=== PATIENT | male | born 1980 | race Caucasian/White ===

== ENCOUNTER 2019-05-22 21:40 | Emergency (ER) | payer BC ==
--- OUTSIDE RECORDS SUMMARY | 2019-05-22 21:46 | XMS REPORT | Continuity of Care Document ---
:1980 External Reference #:[id number] Author Name Gianna Sparks MD Address [address] [place] [id number] Care Team Providers Name Role Phone [facility] - Allergy & Care Team Information Power System Electrical Engineer [phone] Immunology [facility] Care Team Information Power System Electrical Engineer [phone] Laila Melchor MD Care Team Information Power System Electrical Engineer [phone] Sivlino Bennett PT, DPT - Physical Care Team Information Power System Electrical Engineer Therapist Problems Active Problems Provider Date Atopic dermatitis Gianna Sparks MD Onset: 07/08/2018 Social History Type Date Description Comments Sex Unknown ETOH Use Occasionally consumes alcohol Tobacco Use Start: Unknown End: Patient is a former 12/26 quit with Unknown smoker when Smoking Status Reviewed: 05/06/19 Patient is a former 12/26 quit with smoker when Exercise Exercises sporadically Type/Frequency Allergies, Adverse Reactions, Alerts Active Allergies Reaction Severity Comments Date NKDA 06/07/2017 Cats 08/23/2008 Medications Active Medications SIG Qnty Indications Ordering Provider Date Xyzal Allergy 24HR 1 by mouth 90tabs J30.9 Gianna Sparks, 12/01/2017 5mg daily MD Tablets L20.9 Diphenhydramine HCL 1po qhs 120caps J30.9 Gianna Sparks, 12/01/2017 25mg MD Capsules Hydrocortisone Valerate apply to affected 45gm L20.9 Gianna Sparks, 0.2% area 3 times a MD Ointment day until resolved then daily for 1-2 weeks to taper off Montelukast Sodium take 1 tablet by 90tabs L20.9 Gianna Sparks, 2017 10mg mouth at bedtime Tablets Mometasone Furoate apply twice daily 45gm L20.9 Gianna Sparks, 0.1% to atopic rash Ointment History Medications Prednisone 2 by mouth for 10tabs M54.5 Gianna Sparks, 05/06/2019 - 20mg Tablets 3 days, then 1 MD 05/12/2019 by mouth daily for 4 days Cyclobenzaprine HCL 1 by mouth 90tabs M54.5 Gianna Sparks, 05/06/2019 - 10mg three times a MD 05/12/2019 Tablets day as needed, caution sedation Immunizations CPT Code Status Date Vaccine Lot # [id number] Given 02/01/2019 Tdap (Adacel) Ages 7 And Above Only [id number] Given 05/05/2013 Afluria Or Fluvirin Flu Vac Intramuscular 21980 Given 02/07/2013 Tdap (Adacel) Ages 7 And Above Only 55232 Given 04/16/2012 Afluria Or Fluvirin Flu Vac Intramuscular 50271 Given 06/21/2010 Afluria Or Fluvirin Flu Vac Intramuscular 61143 Given 08/23/2008 Tdap (Adacel) Ages 7 And Above Only 57140 Refused 05/06/2019 Fluzone Highdose Age 65 And Over Preservative & Antibiotic Free [id number] Refused 07/08/2018 Flu Vaccine NOS 53872 Refused 10/01/2016 Influenza Virus Vaccine,Quadrivalent,Split,Preserv Free, 0.5mL,Im Vital Signs Date Vital Result Comment 05/12/2019 10:43am Weight 228.00 lb Heart Rate 80 /min BP Systolic 134 mmHg BP Diastolic 80 mmHg Respiratory Rate 18 /min Height 73.5 inches 6'1.50" BMI (Body Mass Index) 29.7 kg/m2 05/06/2019 11:42am Weight 228.00 lb Heart Rate 73 /min BP Systolic 150 mmHg BP Diastolic 90 mmHg Respiratory Rate 18 /min Height 73.5 inches 6'1.50" O2 % BldC Oximetry 99 % BMI (Body Mass Index) 29.7 kg/m2 Results Description No Information Available Procedures Description No Information Available Medical Devices Description No Information Available Encounters Type Date Location Provider Dx Diagnosis Office Visit 05/06/2019 11:15a [facility] Gianna Sparks MD M54.5 Low back pain R03.0 Elevated blood-pressure reading, w/o diagnosis of htn M54.16 Radiculopathy, lumbar region Z68.29 Body mass index (BMI) 29.0-29.9, adult Office Visit 02/08/2019 2:30p [facility] Gianna Sparks MD L20.9 Atopic dermatitis, unspecified S00.91xD Abrasion of unspecified part of head, subsequent encounter S09.90xD Unspecified injury of head, subsequent encounter E78.2 Mixed hyperlipidemia Z13.31 Encounter for screening for depression Z68.29 Body mass index (BMI) 29.0-29.9, adult Office Visit 02/01/2019 3:15p [facility] Gianna Sparks MD S00.91xA Abrasion of unspecified part of head, initial encounter S09.90xA Unspecified injury of head, initial encounter Z23 Encounter for immunization L20.9 Atopic dermatitis, unspecified Z68.28 Body mass index (BMI) 28.0-28.9, adult Assessments Date Code Description Provider 05/12/2019 M54.5 Low back pain Gianna Sparks MD 05/12/2019 Z68.29 Body mass index (BMI) 29.0-29.9, adult Gianna Sparks MD 05/06/2019 M54.5 Low back pain Gianna Sparks MD 05/06/2019 R03.0 Elevated blood-pressure reading, without Gianna Sparks MD diagnosis of hypertension 05/06/2019 M54.16 Radiculopathy, lumbar region Ginana Sparks MD 05/06/2019 Z68.29 Body mass index (BMI) 29.0-29.9, adult Gianna Sparks MD 02/08/2019 L20.9 Atopic dermatitis, unspecified Gianna Sparks MD 02/08/2019 S00.91xD Abrasion of unspecified part of head, Gianna Sparks MD subsequent encounter 02/08/2019 S09.90xD Unspecified injury of head, subsequent Gianna Sparks MD encounter 02/08/2019 E78.2 Mixed hyperlipidemia Gianna Sparks MD 02/08/2019 Z13.31 Encounter for screening for depression Gianna Sparks MD 02/08/2019 Z68.29 Body mass index (BMI) 29.0-29.9, adult Gianna Sparks MD 02/01/2019 S00.91xA Abrasion of unspecified part of head, iGanna Sparks MD initial encounter 02/01/2019 S09.90xA Unspecified injury of head, initial Gianna Sparks MD encounter 02/01/2019 Z23 Encounter for immunization Gianna Sparks MD 02/01/2019 L20.9 Atopic dermatitis, unspecified Gianna Sparks MD 02/01/2019 Z68.28 Body mass index (BMI) 28.0-28.9, adult Gianna Sparks MD Plan of Treatment Future Appointment(s):02/04/2020 2:30 pm - Schedule, Laboratory at [facility]2019 3:30 pm - Gianna Sparks MD at [facility]05/12/2019 - Gianna Sparks, MDM54.5 Low back painComments:back pain resolvedoff all medsfeels he can return to work full dutyworking on core strength from PT,working on lifting strategies. do this the rest of your life use kathleen pressups if another flare up happens return to work full duty, seek care if sxs returnFollow up:as wuqmlbyJ13.29 Body mass index (BMI) 29.0-29.9, adultComments:Recommend regular exercise and reduced calorie diet for weight loss Cautioned risks for developing sleep apnea, arthritis, hypertension, premature cardiovascular disease, diabetes. Functional Status Description No Information Available Mental Status Description No Information Available Referrals Refer to Dr Reason for Referral Status Appt Date Laila Melchor MD 38 yo with severe arm/hand Patient Declined dermatitis, atopic. [address] [place] [address] [phone] [facility] deep abrasions x 2 to face , concern fo Closed 2018 rdepth of injury [address] [place] [address] [phone]
--- OUTSIDE RECORDS SUMMARY | 2019-05-22 21:46 | XMS REPORT | Continuity of Care Document ---
:1980 External Reference #:[id number] Author Name Gianna Sparks MD Address [address] [place] [id number] Care Team Providers Name Role Phone [facility] - Allergy & Care Team Information Manager Enrollment Immunology [facility] Care Team Information Manager Enrollment [phone] Laila Melchor MD Care Team Information Manager Enrollment [phone] Silvino Bennett PT, DPT - Physical Care Team Information Manager Enrollment [phone] Therapist Problems Active Problems Provider Date Atopic [...] CPT Code Status Date Vaccine Lot # [id number] Given 02/01/2019 Tdap (Adacel) Ages 7 And Above Only [id number] 56644 Given 05/05/2013 Afluria Or Fluvirin Flu Vac Intramuscular 96911 Given 02/07/2013 Tdap (Adacel) Ages 7 And Above Only 96233 Given 04/16/2012 Afluria Or Fluvirin Flu Vac Intramuscular 01551 Given 06/21/2010 Afluria Or Fluvirin Flu Vac Intramuscular 81266 Given 08/23/2008 Tdap (Adacel) Ages 7 And Above Only 93817 Refused 05/06/2019 Fluzone Highdose Age 65 And Over Preservative & Antibiotic Free Q2039 Refused 07/08/2018 Flu Vaccine NOS 12136 Refused 10/01/2016 Influenza Virus Vaccine,Quadrivalent,Split,Preserv Free, 0.5mL,Im [...] Provider Dx Diagnosis Office Visit 05/06/2019 11:15a [facility] Gianna Sparks MD M54.5 Low back pain R03.0 Elevated blood-pressure reading, w/o diagnosis of htn M54.16 Radiculopathy, lumbar region Z68.29 Body mass index (BMI) 29.0-29.9, adult Office Visit 02/08/2019 2:30p [facility] Gianna Sparks MD L20.9 Atopic dermatitis, unspecified S00.91xD Abrasion of unspecified part of head, subsequent encounter S09.90xD Unspecified injury of head, subsequent encounter E78.2 Mixed hyperlipidemia Z13.31 Encounter for screening for depression Z68.29 Body mass index (BMI) 29.0-29.9, adult Office Visit 02/01/2019 3:15p [facility] Gianna Sparks MD S00.91xA Abrasion of unspecified [...] of hypertension 05/06/2019 M54.16 Radiculopathy, lumbar region Gianna Sparks MD 05/06/2019 Z68.29 Body mass index [...] S00.91xA Abrasion of unspecified part of head, Gianna Sparks MD initial encounter 02/01/2019 S09.90xA Unspecified injury of head, initial Gianna Sparks MD encounter 02/01/2019 Z23 Encounter for immunization Gianna Sparks MD 02/01/2019 L20.9 Atopic dermatitis, unspecified Gianna Sparks MD 02/01/2019 Z68.28 Body mass index (BMI) 28.0-28.9, adult Gianna Sparks MD Plan of Treatment Future Appointment(s):02/04/2020 2:30 pm - Schedule, Laboratory at [facility]2019 3:30 pm - Gianna Sparks MD at [facility]05/12/2019 - Gianna Sparks, MDM54.5 Low back painComments:back pain resolvedoff all medsfeels he can return to work full dutyworking on core strength from PT,working on lifting strategies. do this the rest of your life use kathleen pressups if another flare up happens return to work full duty, seek care if sxs returnFollow up:as nqsxfryO80.29 Body mass index (BMI) 29.0-29.9, adultComments:Recommend regular exercise and reduced calorie diet for weight loss Cautioned risks for developing sleep apnea, arthritis, hypertension, premature cardiovascular disease, diabetes. Functional Status Description No Information Available Mental Status Description No Information Available Referrals Refer to Dr Reason for Referral Status Appt Date Laila Melchor MD 38 yo with severe arm/hand Patient Declined dermatitis, atopic. [address] [facility] [place] [address] [phone] [facility] deep abrasions x 2 to face , concern fo Closed 2018 rdepth of injury [address] [place] [address] [phone]
--- NOTE | 2019-05-22 21:51 | UC ---
Dental HPI - HPI Summary HPI Summary: C/O worsening right lower dental pain over the last 24 hours. Using ibuprofen/ ice/ ambusol for pain. - History of Current Complaint Stated Complaint: DENTAL PAIN Time Seen by Provider: 05/22/19 21:43 Hx Obtained From: Patient Onset/Duration: Sudden Onset, Lasting Days - 1, Worse Since - onset Severity: Moderate Aggravating Factor(s): Heat, Cold, Chewing Alleviating Factor(s): OTC Meds Related History: Swelling - Allergies/Home Medications Allergies/Adverse Reactions: Allergies Allergy/AdvReac Type Severity Reaction Status Date / Time cat dander Allergy Unknown Unknown Verified 05/22/19 21:47 Reaction Details Home Medications: Home Medications Aspirin TAB* [Aspirin 325 MG TAB*] 650 mg PO Q6H PRN 05/22/19 [History Confirmed 05/22/19] Ibuprofen TAB* [Advil TAB*] 200 mg PO Q6H PRN 05/22/19 [History Confirmed ] PMH/Surg Hx/FS Hx/Imm Hx Previously Healthy: Yes - Surgical History Surgical History: None - Family History Known Family History: Negative: Cardiac Disease, Hypertension, Diabetes - Social History Occupation: Employed Full-time Lives: With Family Alcohol Use: Daily Alcohol Amount: 3 gin & tonics daily Substance Use Type: None Smoking Status (MU): Never Smoked Tobacco Review of Systems All Other Systems Reviewed And Are Negative: Yes ENT: Positive: Dental Pain Physical Exam Triage Information Reviewed: Yes Appearance: Well-Appearing, Well-Nourished, Pain Distress - mild Vital Signs Reviewed: Yes Eyes: Positive: Conjunctiva Clear ENT: Positive: Pharynx normal, TMs normal Dental: Positive: Gross Decay/Caries @ - #30 and #32, Abscess @ - #32 Neck exam: Normal Respiratory Exam: Normal Cardiovascular Exam: Normal Musculoskeletal Exam: Normal Neurological Exam: Normal Psychological Exam: Normal Skin Exam: Normal Dental Complaint Course/Dx - Differential Dx/Diagnosis Differential Diagnosis/Dx: Dental Abscess, Dental Caries, Fractured Tooth, Gingivitis Provider Diagnosis: Dental abscess Discharge ED - Sign-Out/Discharge Documenting (check all that apply): Patient Departure All imaging exams completed and their final reports reviewed: No Studies - Discharge Plan Condition: Stable Disposition: HOME Prescriptions: Amoxicillin/Clavulanate TAB* [Augmentin TAB 875*] 875 mg PO BID #20 tab Patient Education Materials: Dental Abscess (ED), Amoxicillin/Clavulanate Potassium (By mouth) Referrals: Gianna Sparks MD [Primary Care Provider] - Additional Instructions: Take an imodium with each augmentin to prevent diarrhea. - Billing Disposition and Condition Condition: STABLE Disposition: Home
[2019-05-22 21:57] VITALS: BP 156/91
[2019-05-22] MEDS ORDERED: Amoxicillin/Clavulanate TAB* 875 MG PO ONE (21:57)
== END 2019-05-22 22:04 | disposition home or self-care (01) ==
LOC: UCCORT 21:40
DX: K04.7 Periapical abscess without sinus (principal); Z91.09 Other allergy status, other than to drugs and biological substances
CPT/HCPCS: 99202; A9270-GY; G0463

== ENCOUNTER 2019-05-23 09:20 | Emergency (ER) | payer BC ==
[2019-05-23 10:12] VITALS: BP 153/90
[2019-05-23] MEDS ORDERED: Ketorolac *IM* INJ* 60 MG/2 ML VIAL IM ONE (10:20)
[2019-05-23] MEDS ORDERED: Amoxicillin/Clavulanate TAB* 875 MG PO ONE (10:20)
--- NOTE | 2019-05-23 10:27 | UC ---
UC Dental HPI - HPI Summary HPI Summary: right lower second molar pain-was seen last night and started on augmentin - History of Current Complaint Chief Complaint: UCDentalProblem Stated Complaint: DENTAL PAIN Time Seen by Provider: 05/23/19 10:06 Hx Obtained From: Patient Onset/Duration: Gradual Onset, Lasting Days, Still Present Pain Intensity: 8 Pain Scale Used: 0-10 Numeric Aggravating Factor(s): Nothing Alleviating Factor(s): Nothing Related History: Previous Dental Care on Same Tooth - Allergies/Home Medications Allergies/Adverse Reactions: Allergies Allergy/AdvReac Type Severity Reaction Status Date / Time cat dander Allergy Unknown Unknown Verified 05/23/19 10:05 Reaction Details Home Medications: Home Medications Acetaminophen TAB* [Tylenol TAB*] 650 mg PO Q4H PRN 05/23/19 [History Confirmed 05/23/19] PMH/Surg Hx/FS Hx/Imm Hx Previously Healthy: Yes - Surgical History Surgical History: None - Family History Known Family History: Negative: Cardiac Disease, Hypertension, Diabetes - Social History Occupation: Employed Full-time Lives: With Family Alcohol Use: Daily Alcohol Amount: 3 gin & tonics daily Substance Use Type: None Smoking Status (MU): Never Smoked Tobacco Review of Systems All Other Systems Reviewed And Are Negative: Yes Constitutional: Positive: Negative Skin: Positive: Negative Eyes: Positive: Negative ENT: Positive: Dental Pain Respiratory: Positive: Negative Cardiovascular: Positive: Negative Gastrointestinal: Positive: Negative Genitourinary: Positive: Negative Motor: Positive: Negative Neurovascular: Positive: Negative Musculoskeletal: Positive: Negative Neurological: Positive: Negative Psychological: Positive: Negative Is Patient Immunocompromised?: No Physical Exam Triage Information Reviewed: Yes Appearance: Well-Appearing, No Pain Distress, Well-Nourished Vital Signs: Initial Vital Signs Temp 98 F 05/23/19 10:07 Pulse 72 05/23/19 10:07 Resp 18 05/23/19 10:07 BP 153/90 05/23/19 10:07 Pulse Ox 100 05/23/19 10:07 Vital Signs Reviewed: Yes Eye Exam: Normal Eyes: Positive: Conjunctiva Clear ENT Exam: Normal ENT: Positive: Normal ENT inspection Dental: Positive: Percussion Tenderness @ - 2 right lower molar, Gross Decay/ Caries @ - 3rd right lower molar Neck exam: Normal Neck: Positive: Supple, Nontender, No Lymphadenopathy Respiratory Exam: Normal Respiratory: Positive: Chest non-tender, No respiratory distress, No accessory muscle use Cardiovascular Exam: Normal Cardiovascular: Positive: RRR, Pulses Normal, Brisk Capillary Refill Musculoskeletal Exam: Normal Musculoskeletal: Positive: Strength Intact, ROM Intact, No Edema Neurological Exam: Normal Neurological: Positive: Alert, Muscle Tone Normal Psychological Exam: Normal Skin Exam: Normal Dental Complaint Course/Dx - Course Course Of Treatment: excellent pain relief with heat and tordal, will change pain rx to ibuprofen 600 alt q 3 hour with Tylenol 650-100 mg continue augment use heat and jaw and follow with dentist on Friday - Differential Dx/Diagnosis Provider Diagnosis: Pain due to dental caries, Hypertension screen Discharge ED - Sign-Out/Discharge Documenting (check all that apply): Patient Departure All imaging exams completed and their final reports reviewed: No Studies - Discharge Plan Condition: Stable Disposition: HOME Prescriptions: Ibuprofen TAB* [Motrin TAB* 600 MG] 600 mg PO Q6H PRN #40 tab PRN Reason: Pain - Mild Patient Education Materials: Toothache (ED), Heat Pack Application (ED) Referrals: Gianna Sparks MD [Primary Care Provider] - Additional Instructions: Alternating Ibuprofen every 6 hours with Tylenol (3 regular or 2 extra strength ) every 6 hours Follow with dentist this week- - Billing Disposition and Condition Condition: STABLE Disposition: Home
== END 2019-05-23 10:56 | disposition home or self-care (01) ==
LOC: UCCORT 09:20
DX: K02.9 Dental caries, unspecified (principal); K08.89 Other specified disorders of teeth and supporting structures; Z01.30 Encounter for examination of blood pressure without abnormal findings; Z91.09 Other allergy status, other than to drugs and biological substances
CPT/HCPCS: 99212; A9270-GY; G0463; J1885